=== PATIENT | female | born 1975 ===

== ENCOUNTER → 2017-10-10 | Emergency (ER) | payer OTHER ==
[~2017-10-10] VITALS: Ht 175.3 cm; Wt 131.5 kg
[~2017-10-10] MED LIST: CELEBREX100 MG PO; PREDNISONE10 MG/DOSE PO; SKELAXIN800 MG PO; SYNTHROID125 MCG; SYNTHROID200 MCG
== END | disposition home or self-care (01) ==
LOC: ER 11:40
DX: M25.561 Pain in right knee (principal)